=== PATIENT | male | born 1980 | race Caucasian/White ===

== ENCOUNTER 2020-11-11 18:55 | Emergency (ER) | payer MEDICAID ==
--- NOTE | 2020-11-11 21:23 | EDM.PDOC ---
ED HPI GENERAL MEDICAL PROBLEM - General Chief Complaint: Respiratory Problem Stated Complaint: SOB, COUGHING Time Seen by Provider: 11/11/20 19:49 Source of Information: Reports: Patient History Limitations: Reports: No Limitations - History of Present Illness INITIAL COMMENTS - FREE TEXT/NARRATIVE: Krystian is a 40-year-old male presenting to the ED for evaluation of persistent min imally productive cough for the last month. Patient smokes a half a pack a day and is HIV positive but on therapy with his counts within normal level. He denies any fever or chills. The cough again has been minimally productive. He has had some shortness of breath but the cough is worse he tries to lie down to sleep. Today he had coughing spell that was so significant that it caused him to vomit. The patient has a history of being vaccinated for COVID-19 with the [employer] vaccination. He also has a history of having COVID-19 in January 2020. He has not had any previous episodes of Pneumocystis carinii, nor has he had any outbreaks of Kaposi's sarcoma. He was diagnosed with HIV in 2018. - Related Data Allergies Allergy/AdvReac Type Severity Reaction Status Date / Time No Known Allergies Allergy Verified 11/11/20 19:34 Past Medical History Immunologic History: Reports: HIV - Infectious Disease History Infectious Disease History: Reports: HIV-Human Immunodeficiency Virus Social & Family History - Tobacco Use Tobacco Use Status *Q: Heavy Tobacco User Years of Tobacco use: 0 Packs/Tins Daily: 0.5 - Recreational Drug Use Recreational Drug Use: No ED ROS GENERAL - Review of Systems Review Of Systems: See Below Constitutional: Reports: No Symptoms HEENT: Reports: No Symptoms Respiratory: Reports: Shortness of Breath, Cough. Denies: Sputum Cardiovascular: Reports: No Symptoms Endocrine: Reports: No Symptoms GI/Abdominal: Reports: Vomiting (Posttussive vomiting today x1) : Reports: No Symptoms Musculoskeletal: Reports: No Symptoms Skin: Reports: No Symptoms Neurological: Reports: No Symptoms Psychiatric: Reports: No Symptoms Hematologic/Lymphatic: Reports: No Symptoms Immunologic: Reports: No Symptoms ED EXAM, GENERAL - Physical Exam Exam: See Below Exam Limited By: No Limitations General Appearance: Alert, No Apparent Distress, Anxious Eye Exam: Bilateral Eye: EOMI, PERRL Nose: Normal Inspection, Normal Mucosa Throat/Mouth: Normal Inspection, Normal Oropharynx, Normal Voice, No Airway Compromise Head: Atraumatic, Normocephalic Neck: Normal Inspection, Supple. No: Lymphadenopathy (R), Lymphadenopathy (L) Respiratory/Chest: No Respiratory Distress, No Accessory Muscle Use, Chest Non- Tender, Wheezing (Inspiratory and expiratory wheezing) Cardiovascular: Normal Peripheral Pulses, Regular Rate, Rhythm, No Murmur GI/Abdominal: Normal Bowel Sounds, Soft, Non-Tender Back Exam: Normal Inspection, Full Range of Motion Extremities: Normal Inspection, Normal Range of Motion, Normal Capillary Refill Neurological: Alert, Oriented, Normal Cognition, No Motor/Sensory Deficits Psychiatric: Normal Affect, Normal Mood Skin Exam: Warm, Dry, Intact, Normal Color, No Rash Lymphatic: No Adenopathy Course - Vital Signs Last Recorded V/S: Last Vital Signs Temp 36.2 C 11/11/20 19:29 Pulse 69 11/11/20 19:29 Resp 16 11/11/20 19:29 BP 128/73 11/11/20 19:29 Pulse Ox 97 11/11/20 19:29 - Orders/Labs/Meds Orders: Active Orders 24 hr Category Date Time Status Chest 2V [CR] Stat Exams 11/11/20 20:02 Taken Labs: Laboratory Tests 11/11/20 11/11/20 Range/Units 20:10 20:10 WBC 7.9 (4.5-11.0) K/uL RBC 4.75 (4.30-5.90) M/uL Hgb 14.9 (12.0-15.0) g/dL Hct 42.6 (40.0-54.0) % MCV 90 (80-98) fL MCH 31 (27-31) pg MCHC 35 (32-36) % Plt Count 194 (150-400) K/uL Neut % (Auto) 55.1 (36-66) % Lymph % (Auto) 29.3 (24-44) % [place] % (Auto) 8.5 H (2-6) % Eos % (Auto) 6.6 H (2-4) % Baso % (Auto) 0.5 (0-1) % Sodium 139 L (140-148) mmol/L Potassium 3.6 (3.6-5.2) mmol/L Chloride 102 (100-108) mmol/L Carbon Dioxide 28 (21-32) mmol/L Anion Gap 12.6 (5.0-14.0) mmol/L BUN 11 (7-18) mg/dL Creatinine 1.1 (0.8-1.3) mg/dL Est Cr Clr Drug Dosing 96.46 mL/min Estimated GFR (MDRD) > 60 (>60) Glucose 102 (74-106) mg/dL Calcium 8.7 (8.5-10.1) mg/dL C-Reactive Protein < 0.05 (0.0-0.3) mg/dL - Radiology Interpretation Free Text/Narrative:: Reviewed the two-view chest x-ray showing no acute infiltrates. There is hyperinflation of the lungs consistent with COPD. - Re-Assessments/Exams Free Text/Narrative Re-Assessment/Exam: 11/11/20 21:19 I reviewed the patient's labs showing a normal CBC with a leukocyte count of 7.9, hemoglobin of 14.9, hematocrit of 42.6 and a platelet count of 194,000. The basic metabolic profile was also normal with a sodium of 139, potassium 3.6, chloride 102, bicarbonate of 28, BUN of 11 with a creatinine 1.1 and glucose of 102. C-reactive protein is normal at less than 0.05. I reviewed the two-view chest x-ray showing no acute infiltrates. With this, the patient likely has acute on chronic bronchitis. My plan is to treat him with azithromycin Z-Praveen taken as directed. This not only has anti-inflammatory bronchial effects but also has antibiotic effects secondary to the chronic bacteria in his lungs and airways. Concerning his HIV, his last counts were all within normal range on his current therapy. A work note was given to the patient indicating that he was seen and evaluated in the ER tonight. Indications return to the ED were discussed and he was discharged in satisfactory condition. Departure - Departure Time of Disposition: 21:18 Disposition: Home, Self-Care 01 Clinical Impression: Acute exacerbation of chronic bronchitis - Discharge Information Instructions: Acute Bronchitis, Adult, [id number] Referrals: PCP,None [Primary Care Provider] - Care Plan Goals: I have found that you have an acute exacerbation of your chronic bronchitis secondary to smoking. We will put you on azithromycin (Z-Praveen to treat the inflammation and infection in the airways. Your blood counts were normal but your chest x-ray did show some inflammation in the airways consistent with this acute on chronic bronchitis. I have also included a prescription for Tessalon Perles to help control your cough. Sepsis Event Note (ED) - Evaluation Sepsis Screening Result: No Definite Risk - Focused Exam Vital Signs: Vital Signs Temp Pulse Resp BP Pulse Ox 11/11/20 19:29 36.2 C 69 16 128/73 97 11/11/20 19:25 36.2 C 69 16 128/73 97 - Problem List & Annotations (1) Acute exacerbation of chronic bronchitis SNOMED Code(s): 471767556 Code(s): J20.9 - ACUTE BRONCHITIS, UNSPECIFIED; J42 - UNSPECIFIED CHRONIC BRONCHITIS Status: Acute Priority: High Current Visit: Yes - Problem List Review Problem List Initiated/Reviewed/Updated: Yes - My Orders Last 24 Hours: My Active Orders 11/11/20 20:02 Chest 2V [CR] Stat - Assessment/Plan Last 24 Hours: My Active Orders 11/11/20 20:02 Chest 2V [CR] Stat
--- NOTE | 2020-11-11 21:38 | CRLCR ---
For Patients: As a result of the Cures Act, medical imaging exams and procedure reports are released immediately into your electronic medical record. You may view this report before your referring provider. If you have questions, please contact your health care provider. INDICATION: Cough for 1 month TECHNIQUE: Chest radiograph 2 views COMPARISON: None FINDINGS: Mediastinum: The mediastinum is normal in appearance. The heart silhouette is normal in size and morphology. Lung: Both lungs are unremarkable in appearance. No sign of pleural effusion seen. No pneumothorax is identified. Bone and Soft tissue: Unremarkable for age. IMPRESSION: 1. No acute cardiopulmonary disease is seen. Dictated by: Artur Leon MD @ 11/11/2020 21:37:47 (Electronically Signed)
== END 2020-11-11 21:36 | disposition home or self-care (01) ==
LOC: JP.ED 18:55
DX: J20.9 Acute bronchitis, unspecified (principal); J42 Unspecified chronic bronchitis; F17.210 Nicotine dependence, cigarettes, uncomplicated
CPT/HCPCS: 36415; 71046; 80048; 85025; 86140; 99285-25

== ENCOUNTER 2023-03-15 20:22 | Emergency (ER) | payer MEDICAID | END 2023-03-15 22:18 | disposition left against medical advice (07) | LOC: JP.ED 20:22 | DX: Z53.21 Procedure and treatment not carried out due to patient leaving prior to being seen by health care provider (principal) ==

== ENCOUNTER 2024-10-13 17:32 | Emergency (ER) | payer MEDICAID ==
[2024-10-13] MEDS: Ketorolac 30 MG/ML SDV IM ONE (19:21)
[2024-10-13] MEDS: Ondansetron 4 MG Tab.DIS PO ONE (19:21)
== END 2024-10-13 20:31 | disposition home or self-care (01) ==
LOC: JP.ED 17:32
DX: G89.29 Other chronic pain (principal); M54.50 Low back pain, unspecified; F17.200 Nicotine dependence, unspecified, uncomplicated; Z86.16 Personal history of COVID-19; Z79.899 Other long term (current) drug therapy; X50.1XXA Overexertion from prolonged static or awkward postures, initial encounter
CPT/HCPCS: 96372; 99283; A9270; J1885; Q0162